=== PATIENT | male | born 1990 | race Caucasian/White ===

== ENCOUNTER 2023-04-16 00:33 | Emergency (ER) | payer OTHER, SELFPAY ==
[2023-04-16] VITALS (40 sets, daily range): BP systolic 106–167; BP diastolic 64–96; PULSE 102–163; RESP 10–23; TEMP 36.1–37.1; O2SAT 97–100
--- NOTE | ~2023-04-16 | XR_ITS ---
XR chest 1V portable 04/16/2023 01:20 Indication: New onset of chest pain Procedure: AP portable chest Comparison: 12/08/2009 Findings: Heart size normal. No focal air space disease, pulmonary edema, pleural effusion or suspect ed pneumothorax. Impression: 1: No acute cardiopulmonary disease. Reviewed, dictated and finalized at location A. NG COMPLIANCE MANAGER Impression: 1: No acute cardiopulmonary disease.
--- NOTE | 2023-04-16 00:36 | ECG_ITS ---
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
--- NOTE | 2023-04-16 00:38 | PC.NURSE ---
pt admits toEDp Dr. Brooks that he consumed cocaine.
[2023-04-16 00:48] LABS: Basophils Absolute Auto 0.2 K/mm3 (0.0-0.1); Basophils Percent Auto 1.6 % (0.2-1.2); Eosinophils Absolute Auto 0.6 K/mm3 (0-0.3); Eosinophils Percent Auto 4.5 % (0-4.4); Hematocrit 39.5 % (42.0-52.0); Hemoglobin 12.5 g/dL (14.0-18.0); Immature Granulocyte Absolute 0.04 K/mm3 (0.00-0.031); Immature Granulocyte Percent A 0.3 % (0-0.5); Lymphocytes Absolute Auto 5.26 K/mm3 (0.9-3.2); Lymphocytes Percent Auto 38.8 % (18.3-44.2); Mean Corpuscular HGB Conc 31.6 g/dl (32-36); Mean Corpuscular Hemoglobin 25.3 pg (26-34); Mean Platelet Volume 11.5 fl (7.4-10.4); Monocytes Absolute Auto 1.2 K/mm3 (0.1-0.6); Monocytes Percent Auto 8.7 % (2.6-8.5); Neutrophils Absolute Auto 6.3 K/mm3 (1.3-6.7); Neutrophils Percent Auto 46.1 % (45.5-73.1); Platelet Count Result 284 k/mm3 (150-375); Red Blood Count 4.94 M/mm3 (4.6-6.20); Red Cell Distribution Width 13.7 % (11.5-14.5); White Blood Count 13.6 K/mm3 (4.5-10.0)
[2023-04-16] MEDS: LORazepam INJ (*CRX) 2 MG/ML VIAL 1 MG IV PUSH ×2 (01:15→02:05)
[2023-04-16] MEDS: SODIUM CHLORIDE 0.9% IV 1,000 ML 999 ML IV CONT ×3 (01:15→04:50)
[2023-04-16 01:18] LABS: INR 0.9; Prothrombin Time 12.8 Seconds (11.1-14.7)
[2023-04-16 01:19] LABS: Partial Thromboplastin Time 23.9 SECONDS (22.3-36.8)
[2023-04-16 01:46] LABS: Ethanol < 10 mg/dL (<10); Lactic Acid Reflex 3.5 mmol/L (0.7-2.0)
--- NOTE | 2023-04-16 01:53 | ED.GENADULT ---
HPI - General Adult General Chief complaint: Chest Pain <Braber Brooks MD - Last Filed: 04/16/23 01:54> Stated complaint: chest pain <Barber Brooks MD - Last Filed: 04/16/23 01:54> Time Seen by Provider: 04/16/23 00:36 <Barber Brooks MD - Last Filed: 04/16/23 01:54> History of Present Illness HPI narrative: patient 32-year-old gentleman who presents emergency department with a chief complaint of chest pain and palpitations. Patient reports this evening using cocaine and also he used PCP the patient states that he started having fast heart rate started having chest pain after using a the patient states He denies suicidal or homicidal ideation <Barber Brooks MD - Last Filed: 04/16/23 01:54> Related Data Allergies/adverse reactions: Allergies Allergy/AdvReac Type Severity Reaction Status Date / Time latex Allergy Mild Rash Verified 04/16/23 00:37 PROCHLORPERAZINE EDISYLATE Allergy Mild Muscle Uncoded 09/10/15 10:25 Spasms PROCHLORPERAZINE MALEATE Allergy Mild Muscle Uncoded 09/10/15 10:25 Spasms <Barber Brooks MD - Last Filed: 04/16/23 01:54> Review of Systems Review of Systems: A 10 system review of systems was completed on the patient and is negative except for what is stated in the HPI. Nursing and ancillary documentation was reviewed. <Barebr Brooks MD - Last Filed: 04/16/23 01:54> Exam Narrative: GENERAL: Well-appearing, well-nourished, and in no acute distress. HEAD: Normocephalic, atraumatic. EYES: PERRLA and EOMI. ENT: Nares clear, no rhinorrhea or epistaxis. Mucous membranes moist. NECK: Supple. CHEST: Clear to auscultation. No respiratory distress. HEART: tachycardic rate and rhythm. No murmur heard. Normal peripheral pulses. ABDOMEN: Soft, nontender, nondistended, normal active bowel sounds. EXTREMITIES: Normal range of motion. No edema. SKIN: Warm, dry, no rash. NEURO: No focal deficits. Alert and oriented x3. PSYCH: Normal mood and affect. <Barber Brooks MD - Last Filed: 04/16/23 01:54> Course Course Emergency Course: Patient resting comfortably and sleeping in bed. Heart rate down into the 90s. When he wakes up his heart rate goes back up to around 110 base having no chest pain or shortness of breath. He is clinically sober and appropriate for discharge home. He has been aggressively hydrated and potassium has been replaced. Troponin negative x3. Lactate improved. He is calling for a ride. <García Rodney MD - Last Filed: 04/16/23 08:54> Vital Signs Vital signs: Vital Signs Temperature 97.0 F L 04/16/23 00:28 Pulse Rate 148 H 04/16/23 00:28 Respiratory Rate 21 H 04/16/23 00:28 Blood Pressure 167/90 H 04/16/23 00:28 Pulse Oximetry 100 04/16/23 00:28 Oxygen Delivery Room Air 04/16/23 00:28 Temperature 97.0 F L 04/16/23 00:28 Pulse Rate 102 H 04/16/23 07:33 Respiratory Rate 13 04/16/23 07:33 Blood Pressure 118/82 04/16/23 06:30 Pulse Oximetry 98 04/16/23 05:45 Oxygen Delivery Room Air 04/16/23 00:34 <Barber Brooks MD - Last Filed: 04/16/23 01:54> Vital Signs Temperature 97.0 F L 04/16/23 00:28 Pulse Rate 148 H 04/16/23 00:28 Respiratory Rate 21 H 04/16/23 00:28 Blood Pressure 167/90 H 04/16/23 00:28 Pulse Oximetry 100 04/16/23 00:28 Oxygen Delivery Room Air 04/16/23 00:28 Temperature 97.0 F L 04/16/23 00:28 Pulse Rate 102 H 04/16/23 07:33 Respiratory Rate 13 04/16/23 07:33 Blood Pressure 118/82 04/16/23 06:30 Pulse Oximetry 98 04/16/23 05:45 Oxygen Delivery Room Air 04/16/23 00:34 <García Rodney MD - Last Filed: 01/27/24 08:54> Medical Decision Making Vital Signs Vital Signs: Vital Signs Temperature 97.0 F L 04/16/23 00:28 Pulse Rate 148 H 04/16/23 00:28 Respiratory Rate 21 H 04/16/23 00:28 Blood Pressure 167/90 H
[2023-04-16 02:08] LABS: Creatine Kinase 175 U/L (55-170); Magnesium 1.8 mg/dL (1.6-2.3)
[2023-04-16 02:28] LABS: Amphetamine Screen Urine Negative (Negative); Barbiturate Screen Urine Negative (Negative); Benzodiazepines Screen Urine Negative (Negative); Cannabinoid Screen Urine Positive (Negative); Cocaine Screen Urine Positive (Negative); Methadone Screen Urine Negative (Negative); Opiate Screen Urine Negative (Negative); Phencyclidine Screen Urine Negative (Negative)
[2023-04-16 03:19] LABS: Alanine Aminotransferase 22 U/L (6-50); Albumin Level 4.3 g/dL (3.5-5.1); Alkaline Phosphatase 80 U/L (38-126); Anion Gap 11 mmol/L (8-16); Aspartate Amino Transferase 27 U/L (17-59); Bilirubin,Total 0.2 mg/dL (0.2-1.3); Blood Urea Nitrogen 11 mg/dL (9-20); Carbon Dioxide 23 mmol/L (22-30); Chloride 102 mmol/L (98-107); Estimated CRCL calculation 108 ml/min; Estimated Glomerular Filt Rate > 60; Glucose 190 mg/dL (65-110); Potassium 2.8 mmol/L (3.4-5.0); Sodium 136 mmol/L (137-145)
[2023-04-16 03:28] LABS: Troponin I < 0.012 ng/mL (0.000-0.034)
[2023-04-16 03:36] LABS: Lipase 72 U/L (23-300)
--- NOTE | 2023-04-16 03:58 | ECG_ITS ---
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
[2023-04-16] MEDS: POTASSIUM CHLORIDE 20 MEQ PACKET (FOR LIQUID) 40 MEQ PO (04:20)
[2023-04-16] MEDS: KCL 20 MEQ/SW 100 ML 100 ML 50 MEQ IVPB (04:21)
[2023-04-16 04:38] LABS: Reflex Lactic Acid Yes or No Add Lactic
[2023-04-16] MEDS: LORazepam INJ (*CRX) 2 MG/ML VIAL IV PUSH (04:42)
[2023-04-16 05:11] LABS: Troponin I < 0.012 ng/mL (0.000-0.034)
[2023-04-16 06:20] LABS: Lactic Acid 1.3 mmol/L (0.7-2.0)
[2023-04-16 06:33] LABS: Troponin I 0.013 ng/mL (0.000-0.034)
--- NOTE | 2023-04-16 07:33 | PC.NURSE ---
assumed care of pt. pt sleeping on stretcher, no distress noted at this time
== END 2023-04-16 09:20 | disposition home or self-care (01) ==
PROVIDERS: Emergency Provider Emergency Medicine
DX: R07.9 Chest pain, unspecified (principal); F14.10 Cocaine abuse, uncomplicated; F16.10 Hallucinogen abuse, uncomplicated; F12.10 Cannabis abuse, uncomplicated; R00.0 Tachycardia, unspecified; I45.9 Conduction disorder, unspecified
CPT/HCPCS: 36415; 71045; 80053; 80307; 82550; 83605; 83690; 83735; 84484; 85025; 85610; 85730; 93005; 96361; 96365; 96366; 96375; 96376; 99284; A9270; J2060; J3480; J7030